=== PATIENT | male | born 1945 | race Caucasian/White ===

== ENCOUNTER 2016-11-14 14:28 | Emergency (ER) | payer OTHER, SELFPAY ==
[2016-11-14 15:41] LABS: ALT (SGPT) 44 U/L (0-55); AST (SGOT) 45 U/L (5-34); Alkaline Phosphatase 79 U/L (40-150); Anion Gap 12 mmol/L (10-20); BUN (Urea Nitrogen) 12 mg/dL (8.4-25.7); Bilirubin, Total 0.8 mg/dL (0.2-1.2); Calc. Creatinine Clearance 0 mL/min (70-130); Calcium 8.9 mg/dL (7.8-10.44); Carbon Dioxide 25 mmol/L (23-31); Chloride 104 mmol/L (98-107); Estimated GFR-MDRD Greater than 90; Globulin 2.5 g/dL (2.4-3.5); Protein, Total 6.1 g/dL (5.8-8.1)
[2016-11-14 15:50] LABS: Band 1 % (5-11); Hematocrit 38.8 % (42.0-52.0); Hypochromia SLIGHT = 6-15 cells (100X) (0-5/hpf); Mean Platelet Volume 8.2 fL (7.4-10.4); Neutrophil 78 % (42-75); Red Blood Cell (RBC) Count 4.14 mill/uL (4.70-6.10); White Blood Cell (WBC) Count 7.7 thou/uL (4.8-10.8)
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
[2016-11-14] MEDS ORDERED: traMADol HCl 50 MG TAB ONE (17:04)
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
--- NOTE | 2016-11-14 17:31 | PICIS ---
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 Altamirano : 1945 M71 MedRec: [id number] AcctNum: [id number] Prepared: SunNov 14, 2016 17:29 by Interface Page 9 of 10 pMD [facility] EMERGENCY RECORD ADMIN (17:22 MPUR) DIGITAL SIGNATURE: MD Morales Marcus. RESULTS (15:50 JPAR) LABORATORY: Comprehensive Metabolic Panel Collection DT: SunNov 14, 2016 15:21, Sodium 137 mmol/L, Range (136-145), Potassium 4.0 mmol/L, Range (3.5-5.1), Chloride 104 mmol/L, Range (98-107), Carbon Dioxide 25 mmol/L, Range (23-31), Anion Gap 12 mmol/L, Range (10-20), BUN (Urea Nitrogen) 12 mg/dL, Range (8.4-25.7), Creatinine 0.74 mg/dL, Range (0.7-1.3), Estimated GFR-MDRD Greater than 90 , Reference Range for Estimated GFR: Greater than 90, mL/min/1.73 m2 NOTE: The MDRD equation has not been validated for use, with the elderly (over 70 years of age), women, patients with, serious comorbid condition or persons with extremes of body size, muscle, mass, or nutritional status. , *Glucose 131 - H mg/dL, Range (80-115), Calcium 8.9 mg/dL, Range (7.8-10.44), Bilirubin, Total 0.8 mg/dL, Range (0.2-1.2), Protein, Total 6.1 g/dL, Range (5.8-8.1), NOTE: Plasma values are generally 0.3 to 0.5 g/dL higher than serum values, due to the presence of fibrinogen. , Albumin 3.6 g/dL, Range (3.4-4.8), Globulin 2.5 g/dL, Range (2.4-3.5), Alb/Glob Ratio 1.4 g/dL, Range (1.2-2.2), Alkaline Phosphatase 79 U/L, Range (40-150), *AST (SGOT) 45 - H U/L, Range (5-34), ALT (SGPT) 44 U/L, Range (0-55). Warren: TORITO=JANETTE Ritchie, Luis MPUR=MD Andrew, Keegan &a-1R&a+25V*p+0X*g0674B*c202B*c15G*c2P*p-0X&a-25V&a+1R Name: Ashok Altamirano : 1945 M71 MedRec: [id number] AcctNum: [id number] Prepared: Rashawn Nov 14, 2016 17:29 by Interface Page 10 of 10 pMD MTDD
== END 2016-11-14 17:25 | disposition home or self-care (01) ==
LOC: NAV ERS 14:28
DX: S22.41XA Multiple fractures of ribs, right side, initial encounter for closed fracture (principal); J44.9 Chronic obstructive pulmonary disease, unspecified; E78.5 Hyperlipidemia, unspecified; E78.00 Pure hypercholesterolemia, unspecified; I10 Essential (primary) hypertension; C61 Malignant neoplasm of prostate; Z87.891 Personal history of nicotine dependence; Z79.82 Long term (current) use of aspirin; Z79.899 Other long term (current) drug therapy; V89.2XXA Person injured in unspecified motor-vehicle accident, traffic, initial encounter
CPT/HCPCS: 71260; 74177; 80053; 85025